=== PATIENT | female | born 1950 | race Two or more races ===

== ENCOUNTER 2020-09-03 09:51 | Outpatient (CLI) | payer OTHER | END 2020-09-03 09:56 | disposition home or self-care (01) | LOC: LAB 09:51 | PROVIDERS: ATTEND Internal Medicine | DX: N18.9 Chronic kidney disease, unspecified (principal) ==

== ENCOUNTER 2020-09-03 11:22 | Outpatient (CLI) | payer OTHER | END 2020-09-03 11:30 | disposition home or self-care (01) | LOC: RAD 11:22 | PROVIDERS: ATTEND Obstetrics & Gynecology | DX: R10.2 Pelvic and perineal pain (principal); Z96.9 Presence of functional implant, unspecified | CPT/HCPCS: 72197; 76830; A9575; 72196 ==